=== PATIENT | female | born 1990 | race Caucasian/White ===

== ENCOUNTER 2020-01-04 06:41 | Observation (INO) ==
[2020-01-04] MEDS ORDERED: Acetaminophen 325 MG TABLET PO PRN (08:49)
[2020-01-04] MEDS ORDERED: *HR* Promethazine 25 MG/ML VIAL IVP PRN (08:49)
[2020-01-04] MEDS ORDERED: *HR* LORazepam 2 MG/ML VIAL IVP PRN (08:51)
[2020-01-04] MEDS ORDERED: Ringers Solution, Lactated 1,000 ML IVC ONE (08:52)
[2020-01-04] MEDS: *HR* Buprenorphine HCl 8 MG TAB.SUBL SL SCH (09:38)
[2020-01-04] MEDS: cloNIDine HCL 0.1 MG TABLET PO SCH (19:33)
[2020-01-04] MEDS ORDERED: QUEtiapine Fumarate 100 MG TABLET PO SCH (21:00)
[2020-01-05 02:00] LABS: Hematocrit 33.6 % (35.3-44.9); Hemoglobin 10.7 g/dL (11.5-15.4); Mean Corpuscular HGB Conc 31.8 g/dL (31.6-35.5); Mean Corpuscular Hemoglobin 28.5 pg (28.0-33.3); Mean Corpuscular Volume 89.4 fL (83.0-100.0); Mean Platelet Volume 11.9 fL (9.4-12.4); Platelet Count 198 K/mcL (140-400); Red Blood Count 3.76 M/mcL (3.82-4.97); Red Cell Distribution Width 13.7 % (11.5-14.5); White Blood Count 8.5 K/mcL (4.3-11.1)
[2020-01-05 02:16] LABS: BUN/Creatinine Ratio 25 (6-26); Blood Urea Nitrogen 19 mg/dL (6-20); Carbon Dioxide 24 mEq/L (23-29); Chloride 109 mEq/L (98-107); Glucose 109 mg/dL (70-105); Potassium 3.9 mEq/L (3.5-5.1); Sodium 140 mEq/L (136-145); eGFR For African Americans > 60 (> 60); eGFR For Non-African Americans > 60 (> 60)
[2020-01-05 02:17] LABS: Calcium 9.1 mg/dL (8.6-10.3); Osmolality,Calculated 293 (280-300)
[2020-01-05] MEDS ORDERED: *HR* Enoxaparin 40 MG/0.4 ML SYRINGE SQ SCH (06:00)
[2020-01-05] MEDS ORDERED: NON-FORMULARY MEDICATION 1 EACH EACH (Doxepin Hcl 10 MG) PO SCH (09:00)
[2020-01-05] MEDS: *HR* Buprenorphine HCl 8 MG TAB.SUBL SL SCH (09:28)
[2020-01-05] MEDS: cloNIDine HCL 0.1 MG TABLET PO SCH (09:28)
[2020-01-05 15:11] VITALS: BP 105/67
== END 2020-01-05 18:04 | disposition left against medical advice (07) ==
LOC: 3BNU
PROVIDERS: ADMIT Student in an Organized Health Care Education/Training Program; ATTEND Student in an Organized Health Care Education/Training Program